=== PATIENT | female | born 1955 | race Caucasian/White ===

== ENCOUNTER → 2016-09-10 | Outpatient (CLI) | payer BC ==
[2015-12-22 11:00] VITALS: BP 146/72
[~2016-09-10] MED LIST: ATOR20TA58 PO; CIPR500T94 PO; FLUC150T PO; LISI-338 PO; LISI10TA2 PO; MELO15TA23 PO; POTASSIUM CHLO10 MEQ PO; TRAM50TA PO; TRIA1CAP3 PO; TRIA1TAB3 PO; ZOLP10TA4 PO
--- NOTE | 2016-09-10 18:06 | KCIC ---
Bilateral digital screening mammograms: Reason for examination: Routine screening. Comparison is made to previous studies dated 07/12/2015 and 06/14/2014. The skin and nipples show no abnormalities. No abnormal lymph nodes are seen. The breast parenchyma is predominantly fatty. (Breast density: Category A.) There are no dominant masses, suspicious calcifications or architectural distortions. Punctate benign calcifications are again seen. Impression: No evidence of malignancy. Recommend routine screening. BI-RADS Category 2: Benign. "Our facility is accredited by the [employer] Mammography Program." This patient's information has been entered into a reminder system for the patient to be notified with the results of her examination and a target date for the next mammogram. Electronically signed by: Huong Lawson MD (09/10/2016 6:02 PM)
== END | disposition home or self-care (01) ==
LOC: KCIC MAMMO 15:09
PROVIDERS: ATTEND Family Medicine
DX: Z12.31 Encounter for screening mammogram for malignant neoplasm of breast (principal)
CPT/HCPCS: G0202; 77067

== ENCOUNTER → 2017-10-01 | Outpatient (CLI) | payer BC | END | disposition home or self-care (01) | LOC: KCIC MAMMO 10:02 | DX: Z12.31 Encounter for screening mammogram for malignant neoplasm of breast (principal) | CPT/HCPCS: 77067 ==

== ENCOUNTER → 2017-11-14 | Outpatient (CLI) | payer BC ==
[2015-12-22 11:00] VITALS: BP 146/72
[~2017-11-14] MED LIST changes: +LOSA25TA4 PO; +POTA10TA12 PO; -POTASSIUM CHLO10 MEQ PO
--- NOTE | 2017-11-14 14:34 | KCIC ---
EXAM: Abdomen sonogram; pelvic sonogram. HISTORY: Right flank pain. Right upper quadrant pain. TECHNIQUE: Sonographic imaging of the abdomen was performed. Transabdominal and transvaginal sonographic imaging of the pelvis performed. COMPARISON: None. FINDINGS: Pelvis: The uterus measures 8.7 x 5.1 x 5.4 cm. There are multiple uterine fibroids, the largest of which measures 3.9 cm within the anterior uterine fundus. There is a nabothian cyst within the cervix. The right ovary measures 3.4 x 2.9 x 3.8 cm. The left ovary measures 1.8 x 1.7 x 1.3 cm. There is normal blood flow within both ovaries. There is a 3.1 cm right ovarian cyst. There is no pelvic free fluid. The endometrial stripe measures 8.7 mm in thickness. Abdomen: The liver is normal in size. There is a 2.8 cm complex left hepatic cyst. There is hepatic steatosis. The gallbladder is unremarkable. The kidneys are unremarkable. The spleen is normal in size. The pancreas is partially obscured. The aorta is normal in caliber. The inferior vena cava is patent. IMPRESSION: 1. Multiple uterine fibroids, the largest of which measures 3.9 cm. 2. Thickened endometrial stripe for the postmenopausal status of the patient, measuring 8.7 mm. Tissue sampling may be indicated. 3. 3.1 cm right ovarian cyst. This is simple in appearance. 4. Nabothian cyst within the cervix. 5. 2.8 cm complex hepatic cyst with internal septation. 6. Suspected hepatic steatosis. Electronically signed by: Lisa Guzman MD (11/14/2017 2:31 PM) [facility] [place]
== END | disposition home or self-care (01) ==
LOC: KCIC US 07:52
PROVIDERS: ATTEND Nurse Practitioner
DX: D25.9 Leiomyoma of uterus, unspecified (principal); N83.291 Other ovarian cyst, right side; N88.8 Other specified noninflammatory disorders of cervix uteri; K76.89 Other specified diseases of liver; I10 Essential (primary) hypertension; E78.5 Hyperlipidemia, unspecified; E78.00 Pure hypercholesterolemia, unspecified; E87.6 Hypokalemia; Z90.49 Acquired absence of other specified parts of digestive tract; Z90.89 Acquired absence of other organs; Z68.28 Body mass index [BMI] 28.0-28.9, adult; Z82.49 Family history of ischemic heart disease and other diseases of the circulatory system; Z80.1 Family history of malignant neoplasm of trachea, bronchus and lung; Z83.3 Family history of diabetes mellitus
CPT/HCPCS: 76700; 76830; 76856

== ENCOUNTER 2017-11-15 06:19 | Inpatient (IN) | payer BC ==
[~2017-11-15] VITALS: Ht 162.6 cm; Wt 81.0 kg
[~2017-11-15 06:19] MED LIST changes: -LOSA25TA4 PO
[2017-11-15 06:28] VITALS: BP 167/82
[2017-11-15] MEDS ORDERED: ZOLP10TA4 PO (06:53)
--- NOTE | 2017-11-15 08:52 | RAD ---
EXAM: Chest, single view. HISTORY: Chest pain. COMPARISON: None. FINDINGS: A frontal view of the chest is obtained. There is no infiltrate, pleural effusion or pneumothorax. The heart is normal in size. There is a cardiac loop recorder overlying the mediastinum. IMPRESSION: No acute pulmonary finding. Electronically signed by: Lisa Guzman MD (11/15/2017 8:49 AM) [facility]
[2017-11-15 09:12] LABS: BASO % 1 % (0-3); EOS # 0.1 x10^3/uL (0.0-0.7); EOS % 1 % (0-3); HEMATOCRIT 39.7 % (36.0-47.0); HEMOGLOBIN 13.6 g/dL (12.0-15.5); LYMPH % 35 % (24-48); MEAN CORPUSCULAR HEMOGLOBIN 31 pg (25-35); MEAN CORPUSCULAR HGB CONC 34 g/dL (31-37); MEAN CORPUSCULAR VOLUME 91 fL (79-100); MONO # 0.7 x10^3/uL (0.0-1.1); MONO % 11 % (0-9); NEUT % 52 % (31-73); PLATELET COUNT 190 x10^3/uL (140-400); RED BLOOD COUNT 4.34 x10^6/uL (3.50-5.40); RED CELL DISTRIBUTION WIDTH 13.1 % (11.5-14.5); WHITE BLOOD COUNT 5.8 x10^3/uL (4.0-11.0)
[2017-11-15 09:32] LABS: CALCIUM 9.5 mg/dL (8.5-10.1); CREATININE 0.8 mg/dL (0.6-1.0); DIRECT BILIRUBIN 0.2 mg/dL (0.0-0.2); GFR 72.7; POTASSIUM 3.4 mmol/L (3.5-5.1); TOTAL BILIRUBIN 0.6 mg/dL (0.2-1.0); TOTAL PROTEIN 7.1 g/dL (6.4-8.2)
[2017-11-15 09:33] LABS: CHOLESTEROL/HDL RATIO 2.4
[2017-11-15 09:39] LABS: CREATINE KINASE 69 U/L (26-192)
[2017-11-15 11:00] VITALS: BP 152/78
[2017-11-15] MEDS ORDERED: LOSA25TA4 PO (11:20)
--- NOTE | 2017-11-15 11:21 | PDOC2 ---
CARDIOLOGY CONSULT NOTE CHEIF COMPLAINT: Nausea, feeling tired HPI: 62 y.o woman well known to our office has had some fatigue throughout the summer. She is still able to walk 3-5 miles without stopping most days of the weak but feels like she has been overall fatigued. Denies any chest pain, syncope, orthopnea or PND. No LE edema. +nausea last night, didn't feel well so went to urgent care and then transferred to [place]. Today feels better. overnight, no events on tele. Her monitor was reviewed and revealed multiple bridget alerts. PMHX: HTN Bradycardia/SSS SOCHX: No alcohol, tob or illicits. FAMHX: NC CURRENT MEDS: Unknown, she recently stopped lisinopril. ALLERGIES: Allergies Coded Allergies Type Severity Reaction Last Updated Verified No Known Drug Allergies 07/16/15 No ROS: Negative for 01/04 systems reviewed unless otherwise noted above in HPI. PHYSICAL EXAM: Vital Signs: Vital Signs Date Time Temp Pulse Resp B/P (MAP) Pulse Ox O2 Delivery O2 Flow Rate FiO2 11/15/17 06:28 97.6 59 16 167/82 (110) 98 Room Air 97.6 Physical Exam: GEN.: No apparent distress. Alert and oriented. HEENT: Head is normocephalic, atraumatic NECK: Supple. LUNGS: Clear to auscultation. HEART: RRR, S1, S2 present. Peripheral pulses intact ABDOMEN: Soft, nontender. Positive bowel sounds. EXTREMITIES: Without any cyanosis. NEUROLOGIC: Normal speech, normal tone PSYCHIATRIC: Normal affect, normal mood. SKIN: No ulcerations DIAGNOSTIC TESTING: EKG unremarkable Tele Sinus bradycardia Lab Labs reviewed. Trop negative. ASSESSMENT: 1. SSS with fatigue - would benefit from pacer. 2. HTN PLAN: 1. Would benefit from pacer. Discussed r/b/a and she wishes to proceed. She really wants to go home to her family and given that she has no active chest pain, HR is stable without syncope, this can be done on an outpt basis. 2. Will set up for outpt echo and pacer. Thanks. Ok to DC home today on losartan if she has no issues after ambulating. I told her to refrain from driving, caring for children by herself and to have someone with her until her pacer is placed. She understands the precautions. MARIBETH SARMIENTO MD Nov 15, 2017 11:21
--- NOTE | 2017-11-15 11:23 | RAD ---
EXAM: Carotid Doppler sonogram. HISTORY: Syncope. TECHNIQUE: Higuera scale and color Doppler sonographic evaluation of the neck with spectral waveform analysis was performed and static images are submitted for review. FINDINGS: There is mild atherosclerotic plaque throughout the common carotid arteries and carotid bulbs. The peak systolic velocity within the right common carotid artery is 65 cm/sec. The peak systolic velocity within the right internal carotid artery is 96 cm/sec and the end diastolic velocity within the right internal carotid artery is 37 cm/sec. The right ICA/CCA ratio is 1.5. The peak systolic velocity within the left common carotid artery is 77 cm/sec. The peak systolic velocity within the left internal carotid artery is 108 cm/sec and the end diastolic velocity within the left internal carotid artery is 36 cm/sec. The left ICA/CCA ratio is 1.5. There is normal antegrade flow within both vertebral arteries. IMPRESSION: No Doppler evidence of hemodynamically significant stenosis within the carotid or vertebral arteries. PQRS Compliance Statement - Stenosis calculations for CT, MR and conventional angiography are based upon measurement of the distal ICA diameter in accordance with the NASCET methodology. Stenosis calculations for carotid ultrasound studies are derived from validated velocity criteria which are known to correlate with the NASCET methodology. Electronically signed by: Lisa Guzman MD (11/15/2017 11:20 AM) [facility]
[2017-11-15] MEDS ORDERED: POTASSIUM CHLORIDE 20 MEQ TABLET.ER. PO ONE (12:15)
--- NOTE | 2017-11-15 12:27 | EKG ---
[facility] [address] [place] [address] Test Date: 2017-11-15 Test Time: 12:20:42 Pat Name: MARSHA HERRON Department: Room: 256 1 Gender: F Web Manager: : 1955 Requested By: CARRIE COLUNGA Order Number: [id number] Reading MD: John Pugh MD Measurements Intervals [place] Rate: 59 P: 38 NV: 132 QRS: -19 QRSD: 94 T: 84 QT: 482 QTc: 482 Interpretive Statements SINUS RHYTHM LEFTWARD AXIS PROLONGED QT ABNORMAL ECG Electronically Signed On 11-18-2017 9:10:29 CDT by John Pugh MD
[2017-11-15] MEDS ORDERED: ACETAMINOPHEN 325 MG TABLET. PO PRN ×2 (13:30)
--- NOTE | 2017-11-15 13:48 | PDOC1 ---
History and Physical Date of Admission Date of Admission 11/15/17 Identification/Chief Complaint Chief Complaint fatigue, chest pain Source Source: Patient History of Present Illness History of Present Illness 62yo F, was sent from [facility] for chest pain. pt has non typical multiple complains. She said she started to cough a few weeks ago, received abx 2 rounds for bronchitis and cough is much better, but since then, she felt "sulaiman", fatigue. yesterday she felt some substernal chest uncomfortable, no sob, no N/V She has a loop recorder for 2 years since syncope 2015, said no syncope or card problem since then. Past Medical History Cardiovascular: HTN, Hyperlipidemia Pulmonary: No pertinent hx CENTRAL NERVOUS SYSTEM: Other GI: No pertinent hx Heme/Onc: No pertinent hx Hepatobiliary: No pertinent hx Psych: No pertinent hx Rheumatologic: No pertinent hx Infectious disease: No pertinent hx Renal/: No pertinent hx Endocrine: No pertinent hx Past Surgical History Past Surgical History: Tubal Ligation, Tonsillectomy Family History Family History: Cancer, Coronary Artery Disease, Diabetes Social History Smoke: No ALCOHOL: none Drugs: None Current Medications Current Medications Current Medications Medications (Trade) Dose Ordered Sig/Angie Start Time Stop Time Status Last Admin Dose Admin Acetaminophen (Tylenol) 650 mg PRN Q6HRS PRN 11/15/17 13:30 Potassium Chloride (Klor-Con) 40 meq 1X ONCE 11/15/17 12:15 11/15/17 12:16 DC 11/15/17 13:27 40 MEQ Allergies Allergies Allergies Coded Allergies Type Severity Reaction Last Updated Verified No Known Drug Allergies 07/16/15 No ROS Review of System CONSTITUTIONAL: No fever or chills EYES: No recent changes SKIN: No rash or itching CARDIOVASCULAR: No chest pain, syncope, palpitations, or edema RESPIRATORY: No SOB or cough GASTROINTESTINAL: No nausea, vomiting or abdominal pain NEUROLOGICAL: No headaches or weakness ENDOCRINE: No cold or heat intolerance GENITOURINARY: No urgency or frequency of urination MUSCULOSKELETAL: No back pain or joint pain LYMPHATICS: No enlarged lymph nodes PSYCHIATRIC: No anxiety or depression Physical Exam Physical Exam GEN.: No apparent distress. Alert and oriented. HEENT: Head is normocephalic, atraumatic NECK: Supple. LUNGS: Clear to auscultation. HEART: RRR, S1, S2 present. Peripheral pulses intact ABDOMEN: Soft, nontender. Positive bowel sounds. EXTREMITIES: Without any cyanosis. NEUROLOGIC: Normal speech, normal tone PSYCHIATRIC: Normal affect, normal mood. SKIN: No ulcerations Vitals Vitals Vital Signs Date Time Temp Pulse Resp B/P (MAP) Pulse Ox O2 Delivery O2 Flow Rate FiO2 11/15/17 11:00 97.9 56 152/78 (102) 97 Room Air 97.9 11/15/17 06:28 16 Labs Labs Laboratory Tests Test 11/15/17 08:50 White Blood Count 5.8 x10^3/uL (4.0-11.0) Red Blood Count 4.34 x10^6/uL (3.50-5.40) Hemoglobin 13.6 g/dL (12.0-15.5) Hematocrit 39.7 % (36.0-47.0) Mean Corpuscular Volume 91 fL (79-100) Mean Corpuscular Hemoglobin 31 pg (25-35) Mean Corpuscular Hemoglobin Concent 34 g/dL (31-37) Red Cell Distribution Width 13.1 % (11.5-14.5) Platelet Count 190 x10^3/uL (140-400) Neutrophils (%) (Auto) 52 % (31-73) Lymphocytes (%) (Auto) 35 % (24-48) Monocytes (%) (Auto) 11 % (0-9) Eosinophils (%) (Auto) 1 % (0-3) Basophils (%) (Auto) 1 % (0-3) Neutrophils # (Auto) 3.0 x10^3uL (1.8-7.7) Lymphocytes # (Auto) 2.0 x10^3/uL (1.0-4.8) Monocytes # (Auto) 0.7 x10^3/uL (0.0-1.1) Eosinophils # (Auto) 0.1 x10^3/uL (0.0-0.7) Basophils # (Auto) 0.0 x10^3/uL (0.0-0.2) Sodium Level 141 mmol/L (136-145) Potassium Level 3.4 mmol/L (3.5-5.1) Chloride Level 105 mmol/L (98-107) Carbon Dioxide Level 29 mmol/L (21-32) Anion Gap 7 (6-14) Blood Urea Nitrogen 10 mg/dL (7-20) Creatinine 0.8 mg/dL (0.6-1.0) Estimated GFR (Cockcroft-Gault) 72.7 Glucose Level 101 mg/dL (70-99) Calcium Level 9.5 mg/dL (8.5-10.1) Total Bilirubin 0.6 mg/dL (0.2-1.0) Direct Bilirubin 0.2 mg/dL (0.0-0.2) Aspartate Amino Transf (AST/SGOT) 16 U/L (15-37) Alanine Aminotransferase (ALT/SGPT) 25 U/L (14-59) Alkaline Phosphatase 55 U/L (46-116) Creatine Kinase 69 U/L (26-192) Creatine Kinase MB (Mass) 0.8 ng/mL (0.0-3.6) Creatine Kinase MB Relative Index % (0-4) Troponin I Quantitative < 0.017 ng/mL (0.000-0.055) Total Protein 7.1 g/dL (6.4-8.2) Albumin 4.0 g/dL (3.4-5.0) Triglycerides Level 57 mg/dL (0-150) Cholesterol Level 154 mg/dL (0-200) LDL Cholesterol, Calculated 78 mg/dL (0-100) VLDL Cholesterol, Calculated 11 mg/dL (0-40) Non-HDL Cholesterol Calculated 89 mg/dL (0-129) HDL Cholesterol 65 mg/dL (40-60) Cholesterol/HDL Ratio 2.4 Thyroid Stimulating Hormone (TSH) 2.542 uIU/mL (0.358-3.74) Laboratory Tests Test 11/15/17 08:50 White Blood Count 5.8 x10^3/uL (4.0-11.0) Red Blood Count 4.34 x10^6/uL (3.50-5.40) Hemoglobin 13.6 g/dL (12.0-15.5) Hematocrit 39.7 % (36.0-47.0) Mean Corpuscular Volume 91 fL (79-100) Mean Corpuscular Hemoglobin 31 pg (25-35) Mean Corpuscular Hemoglobin Concent 34 g/dL (31-37) Red Cell Distribution Width 13.1 % (11.5-14.5) Platelet Count 190 x10^3/uL (140-400) Neutrophils (%) (Auto) 52 % (31-73) Lymphocytes (%) (Auto) 35 % (24-48) Monocytes (%) (Auto) 11 % (0-9) Eosinophils (%) (Auto) 1 % (0-3) Basophils (%) (Auto) 1 % (0-3) Neutrophils # (Auto) 3.0 x10^3uL (1.8-7.7) Lymphocytes # (Auto) 2.0 x10^3/uL (1.0-4.8) Monocytes # (Auto) 0.7 x10^3/uL (0.0-1.1) Eosinophils # (Auto) 0.1 x10^3/uL (0.0-0.7) Basophils # (Auto) 0.0 x10^3/uL (0.0-0.2) Sodium Level 141 mmol/L (136-145) Potassium Level 3.4 mmol/L (3.5-5.1) Chloride Level 105 mmol/L (98-107) Carbon Dioxide Level 29 mmol/L (21-32) Anion Gap 7 (6-14) Blood Urea Nitrogen 10 mg/dL (7-20) Creatinine 0.8 mg/dL (0.6-1.0) Estimated GFR (Cockcroft-Gault) 72.7 Glucose Level 101 mg/dL (70-99) Calcium Level 9.5 mg/dL (8.5-10.1) Total Bilirubin 0.6 mg/dL (0.2-1.0) Direct Bilirubin 0.2 mg/dL (0.0-0.2) Aspartate Amino Transf (AST/SGOT) 16 U/L (15-37) Alanine Aminotransferase (ALT/SGPT) 25 U/L (14-59) Alkaline Phosphatase 55 U/L (46-116) Creatine Kinase 69 U/L (26-192) Creatine Kinase MB (Mass) 0.8 ng/mL (0.0-3.6) Creatine Kinase MB Relative Index % (0-4) Troponin I Quantitative < 0.017 ng/mL (0.000-0.055) Total Protein 7.1 g/dL (6.4-8.2) Albumin 4.0 g/dL (3.4-5.0) Triglycerides Level 57 mg/dL (0-150) Cholesterol Level 154 mg/dL (0-200) LDL Cholesterol, Calculated 78 mg/dL (0-100) VLDL Cholesterol, Calculated 11 mg/dL (0-40) Non-HDL Cholesterol Calculated 89 mg/dL (0-129) HDL Cholesterol 65 mg/dL (40-60) Cholesterol/HDL Ratio 2.4 Thyroid Stimulating Hormone (TSH) 2.542 uIU/mL (0.358-3.74) VTE Prophylaxis Ordered VTE Prophylaxis Devices: Yes VTE Pharmacological Prophylaxi: Yes Assessment/Plan Assessment/Plan Fatigue chest pain, atypical HTN hypokalemia has loop recorder. plan: as per card, pt's loop recorder was found to have bridget cardia recently, which is likely the reason for fatigue, pt need PPM but wants to go home card ok to dc home today and fu with card as outpt next week. CARRIE COLUNGA MD Nov 15, 2017 13:48
--- NOTE | 2017-11-15 13:49 | PDOC3 ---
Discharge Summary [facility] Date of Admission: Nov 15, 2017 Discharge Date: Nov 15, 2017 Admitting Diagnosis Fatigue chest pain, atypical 2/2 arrythmia bradycardia HTN hypokalemia has loop recorder, has bradycardia CONSULTS card Brief Hospital Course 62yo F, was sent from [facility] ER for chest pain. pt has non typical multiple complains. She said she started to cough a few weeks ago, received abx 2 rounds for bronchitis and cough is much better, but since then, she felt "sulaiman", fatigue. yesterday she felt some substernal chest uncomfortable, no sob, no N/V She has a loop recorder for 2 years since syncope 2016, said no syncope or card problem since then. as per card, pt's loop recorder was found to have bridget cardia recently, which is likely the reason for fatigue, pt need PPM but wants to go home. Carotid US neg. card ok to dc home today and fu with card as outpt next week. dc time 35min. Patient History: FHx: cancer 33 FATHER (LUNG CANCER AT AGE 54) Family history: Cardiovascular disease (situation) 32 MOTHER (CHF) Family history: Hypertension (situation) 32 MOTHER (HTN , CHF, CHRONIC ANEMIA) Disposition home CONDITION AT DISCHARGE: Improved Scheduled Atorvastatin Calcium (Atorvastatin Calcium), 20 MG PO DAILY, (Reported) Losartan Potassium (Losartan Potassium), 25 MG PO DAILY, (Reported) Meloxicam (Meloxicam), 15 MG PO DAILY, (Reported) Discontinued Medications Lisinopril (Lisinopril), 10 MG PO DAILY Zolpidem Tartrate (Zolpidem Tartrate), 1 TAB PO QHS, (Reported) CARRIE COLUNGA MD Nov 15, 2017 13:49
[2017-11-15 15:42] VITALS: BP 128/82
== END 2017-11-15 18:40 | disposition home or self-care (01) | DRG 310 ==
LOC: 2 SOUTH 06:19
PROVIDERS: ADMIT Internal Medicine; ATTEND Internal Medicine
DX: I49.9 Cardiac arrhythmia, unspecified (principal); I49.5 Sick sinus syndrome; I10 Essential (primary) hypertension; E78.5 Hyperlipidemia, unspecified; E87.6 Hypokalemia; Z83.3 Family history of diabetes mellitus; Z98.51 Tubal ligation status; Z82.49 Family history of ischemic heart disease and other diseases of the circulatory system; Z80.9 Family history of malignant neoplasm, unspecified; Z80.1 Family history of malignant neoplasm of trachea, bronchus and lung
CPT/HCPCS: 36415; 71045; 76700; 76830; 76856; 80048; 80061; 80076; 82553; 84443; 84484; 85025; 93005; 93880

== ENCOUNTER → 2017-11-19 | Outpatient (CLI) | payer BC ==
[2017-11-15 15:42] VITALS: BP 128/82
[~2017-11-19] MED LIST changes: +LOSA25TA5 PO
--- NOTE | 2017-11-19 12:36 | CARD ---
MR#: [id number] Date of Study: 11/19/2017 Ordering Physician: MARIBETH SARMIENTO, Referring Physician: MARIBETH SARMIENTO, Tech: ARLENE Faulkner APPROVED REPORT INDICATION Chest Pain Reason : Patient complained of pain PROCEDURE The patient underwent an Exercise Stress Test using the Alli Protocol. Blood pressure, heart rate, a nd EKG were monitored. An Echocardiogram was performed by sleep lab technician in four stages in quad fashion. At peak stress four se lected images were obtained and placed side by side with resting images for comparison. STRESS ECHO FINDINGS The resting Echocardiogram showed normal left ventricular systolic contractility with an estimated Ej ection Fraction of about 55 %. The Resting Echocardiogram showed normal augmentation of myocardial wall segments using a 16 segment model. The Stress Echocardiogram showed normal augmentation of myocardial wall segments using a 16 segment m kena. The Stress Echocardiogram left ventricular systolic contractility has an estimated Ejection Fraction of about 80%. Test Type: Exercise Stress Nurse/Tech: Alexandra Mendoza R.N. Test Indications: SSS Cardiac History and Allergies: see ehr Medications: see ehr Medical History: see ehr Resting ECG: SB Resting Heart Rate: 51 bpm Resting Blood Pressure: 161/71mmHg Pretest Chest Pain: None Nurse/Tech Notes lungs CTA, S1S2 Stress Symptoms fatigue, SOB, lightheaded. during the very last minute of recovery period many T waves became inverte d, and the T waves in leads AVR and V1 became upright POST EXERCISE Reason for Termination: Reached target heart rate Target HR: Yes Max HR: 143 bpm 91% of Maximum Predicted HR: 158 bpm Exercise duration: 9 min:sec, 3 Stage Exercise capacity: 10.1METs Max Blood Pressure: 206/72mmHg Blood Pressure response to exercise: Normal blood pressure response during stress. Heart Rate response to exercise: wnl Chest Pain: No. Arrhythmia: Yes. started having frequent pac's ST Change: Yes. slight ST depression in lead II, slight ST elevation in lead AVR and V1 STRESS ECG Stress EKG shows no significant changes. Preliminary Notification Critical Value: No <Conclusion> The left ventricle is normal in size and wall thickness in both the rest and stress images.ef > 60% No stress induced ischemic changes on EKG or echo. Low risk study Signed by : Maribeth Sarmiento, Electronically Approved : 11/19/2017 12:35:31
== END | disposition home or self-care (01) ==
LOC: ECHO 10:38
PROVIDERS: ATTEND Internal Medicine Cardiovascular Disease
DX: R07.9 Chest pain, unspecified (principal); I10 Essential (primary) hypertension; E78.5 Hyperlipidemia, unspecified; E78.00 Pure hypercholesterolemia, unspecified; D25.9 Leiomyoma of uterus, unspecified; E87.6 Hypokalemia; Z90.49 Acquired absence of other specified parts of digestive tract; Z82.49 Family history of ischemic heart disease and other diseases of the circulatory system; Z80.1 Family history of malignant neoplasm of trachea, bronchus and lung; Z83.3 Family history of diabetes mellitus
CPT/HCPCS: 93017; 93350

== ENCOUNTER 2017-11-20 11:20 | Observation (INO) | payer BC ==
[~2017-11-20] VITALS: Ht 162.6 cm; Wt 80.5 kg
[2017-11-20] MEDS ORDERED: ZOLP10TA4 PO (11:45)
[2017-11-20 12:00] VITALS: BP 175/80
[2017-11-20 12:05] LABS: HEMATOCRIT 37.9 % (36.0-47.0); RED BLOOD COUNT 4.13 x10^6/uL (3.50-5.40); RED CELL DISTRIBUTION WIDTH 13.3 % (11.5-14.5)
[2017-11-20 12:17] LABS: CALCIUM 8.7 mg/dL (8.5-10.1); CREATININE 0.7 mg/dL (0.6-1.0); GFR 84.8; POTASSIUM 3.7 mmol/L (3.5-5.1)
[2017-11-20 12:18] LABS: PROTHROMBIN TIME PATIENT 12.3 SEC (11.7-14.0)
[2017-11-20] MEDS ORDERED: LIDOCAINE 2%/EPI 1:100,000 20 ML VIAL. ONE (14:39)
[2017-11-20] MEDS ORDERED: fentaNYL PF VIAL 100 MCG/2 ML VIAL ONE (14:45)
[2017-11-20] MEDS ORDERED: MIDAZOLAM HCL/PF 2 MG/2 ML VIAL. ONE ×2 (14:45→15:14)
[2017-11-20] MEDS ORDERED: BACITRACIN 50,000 UNIT in IV NORMAL SALINE 250ML 250 ML IRR ONE (15:00)
[2017-11-20] MEDS ORDERED: MIDAZOLAM HCL/PF 2 MG/2 ML VIAL. IV ONE (15:00)
[2017-11-20] MEDS ORDERED: fentaNYL PF VIAL 100 MCG/2 ML VIAL IV ONE (15:00)
[2017-11-20] MEDS ORDERED: LIDOCAINE 2%/EPI 1:100,000 20 ML VIAL. IJ ONE (15:00)
[2017-11-20 16:27] VITALS: BP 142/61
[2017-11-20] MEDS ORDERED: NO ANTICOAGULANT THERAPY. MC PRN (17:15)
--- NOTE | 2017-11-20 17:31 | CARD ---
MR#: [id number] Date of Study: 11/20/2017 Ordering Physician: MARIBETH SARMIENTO, Referring Physician: MARIBETH SARMIENTO, Tech: APPROVED REPORT HISTORY Moderate sedation: 90 minutes PROCEDURES Insertion Dual Chamber Pacemaker INDICATIONS SSS IMPLANTED DEVICES 30 mL of 2% lidocaine was infiltrated into the skin and subcutaneous tissues for local anesthesia. A n incision was made over the left infraclavicular fossa and using blunt dissection and cautery a pock et was created. Venous access was obtained in the left subclavian vein and 6 Armenian sheaths were ins erted. Subsequently, a Biotronik bipolar active fixation right ventricular lead modelSolia S 53, SN [id number] was advanced under fluoroscopic guidance and the tip was positioned in the right ventricular apex. Following this, a Biotronik bipolar active fixation right atrial lead model Solia S 45, SN [id number] w as placed in the right atrial appendage under fluoroscopy guidance. The leads were secured into plac e and were attached to a Biotronik dual-chamber permanent pacemaker generator model Eluna 8DR-T, SN [id number]. This was placed in the pocket that was subsequently closed in 3 layers. Hemostasis was sec ured. At the end of procedure, the right ventricular lead showed sensing amplitude of 10.1 mV, impedance of 600 ohms and a threshold of 0.8volts. The right atrial lead showed a sensing amplitude of 2.1 dante volts, impedance of 500 ohms and a threshold of 0.8 volts. Patient tolerated the procedure well. The re were no immediate complications. FINAL SETTINGS: DDD/CLS 60-130 COMPLICATIONS The patient tolerated the procedure well and there were no complications associated with the procedur e. CONCLUSION 1. Successful Biotronik dual chamber pacemaker implantation for SSS. Signed by : Maribeth Sarmiento, Electronically Approved : 11/20/2017 17:30:53
--- NOTE | 2017-11-20 17:34 | CARD ---
MR#: [id number] Date of Study: 11/20/2017 Ordering Physician: MARIBETH SARMIENTO, Referring Physician: MARIBETH SARMIENTO, Tech: APPROVED REPORT EXAM Loop Recorder After appropriate informed consent, the previously placed Biotronik loop recorder site was prepped an d draped in usual sterile fashion. Due to findings of SSS with fatigue, the patient was planned for a pacemaker after loop explantation. 10 ml of lidocaine was used for anesthesia. Using a 15 blade scal pel, a 0.5 inch incision was made over the loop recorder and it was easily identified and removed fro m the pocket. One suture was placed and the incision was closed with steri strips. CONCLUSION Successful Biotronik loop recorder explantation. Signed by : Maribeth Sarmiento, Electronically Approved : 11/20/2017 17:33:20
--- NOTE | 2017-11-20 17:58 | RAD ---
Indication:post pacemaker TECHNIQUE:Portable AP chest X-ray COMPARISON:11/15/2017 FINDINGS: Interval placement of dual-lead cardiac pacer with disease projecting over the heart. Heart is normal in size. Lungs are clear. No pneumothorax or pleural effusion. Visualized bony thorax is within normal limits. IMPRESSION: No acute pulmonary process. Electronically signed by: Eduardo Marley DO (11/20/2017 5:55 PM) [facility]
[2017-11-20 18:16] VITALS: BP 148/65
[2017-11-20 18:46] VITALS: BP 120/61
[2017-11-20] MEDS ORDERED: oxyCODONE/APAP 5/325 1 TAB TABLET PO PRN (19:00)
[2017-11-20] MEDS: ACETAMINOPHEN 325 MG TABLET. PO PRN (19:05)
[2017-11-20 19:53] VITALS: BP 158/64
[2017-11-20 22:44] VITALS: BP 138/99
[2017-11-21 03:35] VITALS: BP 131/60
[2017-11-21] MEDS: ACETAMINOPHEN 325 MG TABLET. PO PRN (06:26)
[2017-11-21 07:00] VITALS: BP 133/65
--- NOTE | 2017-11-21 09:09 | RAD ---
CHEST PA LATERAL History: DAY 1 POST PACEMAKER Comparison: November 20, 2017 Findings: 2 views of the chest are submitted. There is again dual lead left electronic cardiac device, distal lead closer to the ventricular apex and proximal lead in the region of the atrial appendage. Pericardial cardiac silhouette is stable, within normal limits. No pneumothorax is identified. There is no pleural fluid or lobar infiltrate. Impression: 1. No acute radiographic abnormality is identified. Electronically signed by: Andrae Sarabia MD (11/21/2017 9:06 AM) [id number]
--- NOTE | 2017-11-21 10:07 | PDOC3 ---
*Discharge Summary* Date of Admission: Nov 20, 2017 Date of Discharge: Nov 21, 2017 Admitting Diagnosis 1/symptomatic SSS 2/hypertension 3/hyperlipidemia Final Diagnosis 1/symptomatic SSS; S/P dual chamber Biotronik pacemaker 2/hypertension 3/hyperlipidemia Procedures 11/20/2017: 1. Biotronik dual chamber pacemaker implantation for SSS. 2. Biotronik loop recorder explantation Brief Hospital Course Ms. Daniels is a 62 old with symptomatic fatigue. IPL demonstrated multiple bradycardia alerts. Stress echo on 11/19/2017 without significant findings. Pacemaker advised. Underwent pacemaker implant yesterday with explant of IPL. Monitored overnight with appropriate sensing and pacing. Interrogation without significant findings today. CXR with no ptx and leads in stable position. Discharge instructions provided. Wound C/D/I without erythema, edema or ecchymosis. Disposition/Orders: D/C to Home CONDITION AT DISCHARGE: Stable Diet: Cardiac Home Meds Reported Medications Zolpidem Tartrate (ZOLPIDEM TARTRATE) 10 Mg Tablet, 1 TAB PO QHS, #30 TAB 2 Refills 11/20/17 Losartan Potassium (LOSARTAN POTASSIUM) 25 Mg Tablet, 25 MG PO DAILY, TAB 11/15/17 Atorvastatin Calcium (ATORVASTATIN CALCIUM) 20 Mg Tablet, 20 MG PO DAILY for FOR CHOLESTEROL, #30 TAB 0 Refills 07/21/15 Meloxicam (MELOXICAM) 15 Mg Tablet, 15 MG PO DAILY, TAB 07/21/15 Discontinued Reported Medications Zolpidem Tartrate (ZOLPIDEM TARTRATE) 10 Mg Tablet, 1 TAB PO QHS, #30 TAB 2 Refills 11/15/17 Discontinued Scripts Lisinopril (LISINOPRIL) 5 Mg Tablet, 10 MG PO DAILY for 30 Days Prov:CARRIE COLUNGA MD 12/22/15 Scheduled Atorvastatin Calcium (Atorvastatin Calcium), 20 MG PO DAILY, (Reported) Losartan Potassium (Losartan Potassium), 25 MG PO DAILY, (Reported) Meloxicam (Meloxicam), 15 MG PO DAILY, (Reported) Zolpidem Tartrate (Zolpidem Tartrate), 1 TAB PO QHS, (Reported) Discontinued Medications Lisinopril (Lisinopril), 10 MG PO DAILY Zolpidem Tartrate (Zolpidem Tartrate), 1 TAB PO QHS, (Reported) FOLLOW UP APPOINTMENT: wound check on 12/05/2017 PCP 7-10 days Time Spent Total time spent with patient [] minutes for coordination of care, counseling, and education. CARLITA WRIGHT HYBRID TECHNOLOGIST Nov 21, 2017 10:07
== END 2017-11-21 10:30 | disposition home or self-care (01) ==
LOC: CCL 11:20 → 2 NORTH 11:56
PROVIDERS: ADMIT Internal Medicine Cardiovascular Disease; ATTEND Internal Medicine Cardiovascular Disease
DX: I49.5 Sick sinus syndrome (principal); I10 Essential (primary) hypertension; E78.5 Hyperlipidemia, unspecified; R53.83 Other fatigue
CPT/HCPCS: 33208; 33284; 36415; 71045; 71046; 80048; 85027; 85610; 85730; 96365; 96366; 96375; C1785; C1898; G0378; G0379; J0690; J2250; J3010; J3490; J7050; 99152; 99153; J7030

== ENCOUNTER → 2018-01-28 | Outpatient (CLI) | payer BC ==
[~2018-01-28] MED LIST changes: +GLUC1TAB45 PO; +OMEG1CAP27 PO
[2018-01-28 15:55] LABS: BASO % 1 % (0-3); EOS # 0.1 x10^3/uL (0.0-0.7); EOS % 2 % (0-3); HEMATOCRIT 41.4 % (36.0-47.0); HEMOGLOBIN 14.1 g/dL (12.0-15.5); LYMPH # 1.8 x10^3/uL (1.0-4.8); LYMPH % 33 % (24-48); MEAN CORPUSCULAR HEMOGLOBIN 31 pg (25-35); MEAN CORPUSCULAR HGB CONC 34 g/dL (31-37); MEAN CORPUSCULAR VOLUME 90 fL (79-100); MONO # 0.5 x10^3/uL (0.0-1.1); MONO % 9 % (0-9); NEUT % 55 % (31-73); PLATELET COUNT 207 x10^3/uL (140-400); RED BLOOD COUNT 4.59 x10^6/uL (3.50-5.40); RED CELL DISTRIBUTION WIDTH 12.3 % (11.5-14.5); WHITE BLOOD COUNT 5.5 x10^3/uL (4.0-11.0)
--- NOTE | 2018-01-28 16:18 | EKG ---
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
[2018-01-28 16:31] LABS: ALBUMIN 4.1 g/dL (3.4-5.0); ALBUMIN/GLOBULIN RATIO 1.1 (1.0-1.7); CALCIUM 9.5 mg/dL (8.5-10.1); CREATININE 0.8 mg/dL (0.6-1.0); GFR 72.7; POTASSIUM 3.3 mmol/L (3.5-5.1); TOTAL BILIRUBIN 0.6 mg/dL (0.2-1.0); TOTAL PROTEIN 7.8 g/dL (6.4-8.2)
--- NOTE | 2018-01-28 16:35 | RAD ---
CHEST PA LATERAL dated 01/28/2018 3:26 PM. Comparison: 11/21/2017 Clinical Indication: PRE OP, PT TO HAVE HYSTERECTOMY NEXT WEEK. . Findings: PA and lateral views obtained. Heart and mediastinal contours are stable. Dual lead left subclavian pacer in place, unchanged. Lungs are clear without focal consolidation. Vascular interstitium within normal limits. No pleural effusion or pneumothorax. Impression: No acute radiographic abnormality. Stable findings compared 11/21/2017. Electronically signed by: Jayme Garcia MD (01/28/2018 4:32 PM) [id number]
== END | disposition home or self-care (01) ==
LOC: SURGPAT 15:14
PROVIDERS: ATTEND Obstetrics & Gynecology
DX: Z01.818 Encounter for other preprocedural examination (principal); I10 Essential (primary) hypertension; E78.5 Hyperlipidemia, unspecified
CPT/HCPCS: 36415; 71046; 80053; 85025; 93005

== ENCOUNTER 2018-02-04 05:46 | Observation (INO) | payer BC ==
[2018-02-04] VITALS (10 sets, daily range): BP systolic 124–156; BP diastolic 46–79
[~2018-02-04] VITALS: Ht 162.6 cm; Wt 81.6 kg
[2018-02-04] MEDS ORDERED: fentaNYL PF VIAL 100 MCG/2 ML VIAL IV PRN (07:00)
[2018-02-04] MEDS ORDERED: HYDROmorphone 2 MG/ML VIAL IV PRN (07:00)
[2018-02-04] MEDS ORDERED: LIDOCAINE 1% PF 2 ML VIAL. ID PRN (07:00)
[2018-02-04] MEDS ORDERED: IV RINGERS,LACTATED 1000ML 1,000 ML IV SCH (07:00)
[2018-02-04] MEDS ORDERED: ONDANSETRON PF 4 MG/2 ML VIAL. IV PRN ×2 (07:00→09:30)
[2018-02-04] MEDS ORDERED: MORPHINE SULFATE 2 MG/ML VIAL. IV PRN ×2 (07:00→09:30)
[2018-02-04] MEDS ORDERED: PROCHLORPERAZINE 10 MG/2 ML VIAL. IV PRN (07:00)
[2018-02-04] MEDS ORDERED: SEVOFLURANE > 120 MINUTES. IH ONE (07:11)
[2018-02-04] MEDS ORDERED: MIDAZOLAM HCL/PF 2 MG/2 ML VIAL. ONE (07:11)
[2018-02-04] MEDS ORDERED: ONDANSETRON PF 4 MG/2 ML VIAL. ONE (07:12)
[2018-02-04] MEDS ORDERED: ROCURONIUM 50 MG/5 ML VIAL. ONE (07:12)
[2018-02-04] MEDS ORDERED: KETOROLAC 30 MG/ML INJ FOR OR. INJ ONE (07:12)
[2018-02-04] MEDS ORDERED: NEOSTIGMINE METHYLSULFATE 5 MG/5 ML SYRINGE. ONE (07:12)
[2018-02-04] MEDS ORDERED: DEXAMETHASONE SOD PHOS 20 MG/5 ML VIAL. ONE (07:12)
[2018-02-04] MEDS ORDERED: fentaNYL PF VIAL 100 MCG/2 ML VIAL ONE (07:12)
[2018-02-04] MEDS ORDERED: PROPOFOL 20 ML IV ONE (07:12)
[2018-02-04] MEDS ORDERED: GLYCOPYRROLATE 1 MG/5 ML VIAL. ONE (07:12)
[2018-02-04] MEDS ORDERED: ZOLPIDEM 5 MG TABLET. PO PRN ×2 (07:30→09:30)
[2018-02-04] MEDS ORDERED: ePHEDrine PF IN SALINE 50 MG/5 ML DISP.SYRIN IV ONE (07:52)
[2018-02-04] MEDS ORDERED: BUPIVAC MPF-EPI 0.5%-1:200000 30 ML VIAL. ONE (08:45)
[2018-02-04] MEDS: ATORVASTATIN CALCIUM 20 MG TABLET PO SCH ×2 (09:00→20:29)
[2018-02-04] MEDS: LOSARTAN POTASSIUM 25 MG TABLET. PO SCH (09:00)
--- NOTE | 2018-02-04 09:28 | PDOC ---
BRIEF OPERATIVE NOTE Date: Feb 04, 2018 Pre-Op Diagnosis enlarged fibroid uterus, endometrial thickening, right ovarian cyst Post-Op Diagnosis same plus bowel adhesions seen incidentially Procedure Performed LAVH/BSO Surgeon Dr. Eufemia Ramachandran Tractor Distributor Keiry technical services assistant Anesthesiologist Dr. Beto Narvaez Anesthesia Type: General Blood Loss 25cc IV Fluid 1L Urine Output 500cc clear via galicia Specimens Obtained cervix, uterus, bilateral tubes and ovaries Findings bowel adhesions on both sides of sidewalls, enlarged fibroid uterus, normal left tube/ovary, enlarged cystic right ovary Complications none Operative Note [id number] EUFEMIA RAMACHANDRAN MD Feb 04, 2018 09:28
[2018-02-04] MEDS ORDERED: NALOXONE 0.4 MG/ML VIAL. IV PRN (09:30)
[2018-02-04] MEDS ORDERED: MAGNESIUM HYDROXIDE 2,400 MG/30 ML ORAL.SUSP. PO PRN (09:30)
[2018-02-04] MEDS ORDERED: LACTULOSE 20 GM/30 ML SOLUTION. PO PRN (09:30)
[2018-02-04] MEDS ORDERED: 0.9 % SODIUM CHLORIDE 10 ML DISP.SYRIN. IV PRN (09:30)
[2018-02-04] MEDS ORDERED: diphenhydrAMINE 50 MG/ML VIAL IV PRN (09:30)
[2018-02-04] MEDS ORDERED: SIMETHICONE 80 MG TAB.CHEW PO PRN (09:30)
[2018-02-04] MEDS ORDERED: CALCIUM CARBONATE 500 MG TAB.CHEW PO PRN (09:30)
[2018-02-04] MEDS ORDERED: diphenhydrAMINE HCL 25 MG CAPSULE PO PRN (09:30)
[2018-02-04] MEDS ORDERED: KETOROLAC 30 MG/ML VIAL. IV PRN (09:30)
[2018-02-04] MEDS ORDERED: HYDROcodone/APAP 5/325MG 1 TAB TABLET PO PRN (09:30)
[2018-02-04] MEDS ORDERED: MAG HYDROX/ALUMINUM HYD/SIMETH 30 ML ORAL.SUSP PO PRN (09:30)
[2018-02-04] MEDS: fentaNYL PF VIAL 100 MCG/2 ML VIAL IV PRN ×2 (09:59→10:07)
--- NOTE | 2018-02-04 10:42 | OP ---
DATE OF SURGERY: 02/04/2018 PREOPERATIVE DIAGNOSES: Enlarged fibroid uterus, endometrial thickening seen on sonogram and a complex right ovarian cyst. POSTOPERATIVE DIAGNOSES: Enlarged fibroid uterus, endometrial thickening seen on sonogram and a complex right ovarian cyst plus bowel adhesions found incidentally on both sides of the sidewall lower pelvic area. SURGEON: Eufemia Gadnhi M.D. CRANE ASSEMBLER: first usman Olea. ANESTHESIOLOGIST: Beto Arnold M.D. ANESTHESIA: General endotracheal. SURGERY PERFORMED: Laparoscopic-assisted vaginal hysterectomy and bilateral salpingo-oophorectomy. ESTIMATED BLOOD LOSS: 25 mL. URINE OUTPUT: 500 mL clear via Sepulveda catheter. FLUIDS: 1 liter of crystalloid. FINDINGS: Enlarged fibroid uterus, normal left tube and ovary, normal right tube, enlarged cystic right ovary and bowel adhesions on both sides, but the pelvis was clear of the bladder and posterior cul-de-sac, so the bowel adhesions were actually left alone. COMPLICATIONS: None. DESCRIPTION OF PROCEDURE: This patient was taken to the operating room, where general anesthesia was placed. The patient was placed in dorsal lithotomy position in [facility]. The patient's abdomen and vagina were prepped and draped in the normal sterile fashion and a Sepulveda catheter had been inserted under sterile technique. Upon my arrival, a time-out was performed. Once everyone agreed, a bivalve speculum was placed in the patient's vagina. A single-tooth tenaculum was used to grasp the anterior lip of the cervix. A 10 mL of 0.25% Marcaine with epinephrine was used to circumferentially inject around the cervix for both hemodissection and hemostatic purposes later. The Valtchev uterine manipulator was placed through the endocervical os, locked on the single-tooth tenaculum and the bivalve speculum was then removed. Top gloves were discarded and changed. Attention was then turned to the abdomen, where a small supraumbilical skin incision was made with the scalpel. A curved Maria was used to dissect through the subcuticular layer to the fascia. The 5-mm Visiport was used to directly enter the abdominal cavity. Opening patient pressure was about 4 mmHg. Direct abdominal placement was confirmed via the laparoscope. Right and left lower quadrant ports were placed after transilluminating the abdomen, finding an area clear of any vasculature, making sure it was free on the inside and placing it under direct visualization and inflating the balloons with 2 mL of air. I did move the camera and look at the umbilical port as well. It was clear and I inflated down with 2 mL of air as well. At this point, the patient was placed in Trendelenburg and the left tube and ovary were elevated, distance was normal, finding the ureter coursing low, staying high on the IP ligament, cauterizing it, crossing over to the round and then this was done exactly the same on the right side, but the right had a large cyst, but elevating it, finding the ureter coursing low, staying high on the IP ligament under the ovary and crossing and taking it with the LigaSure, cauterizing and cutting and then getting to the round as well. Once this was done, the uterus was pushed in towards the head of the bed cephalad. The Maryland was used to elevate the bladder flap and the monopolar hook was used to cauterize like a hot knife and come across and make the bladder flap sharply. Once this was done, the LigaSure was used to cross the uterine vessels on both sides and then staying inside that pedicle and going through the cardinal and broad ligaments down to the uterosacral ligaments bilaterally, freeing up the uterus, it did ileana and there were no adhesions to the uterus. So, at this point, all instruments were removed from the abdomen and attention was turned vaginally. The single tooth and Valtchev were removed. A weighted speculum was placed in the patient's vagina. Thyroid Shayna clamps were placed on the anterior and posterior lips of the cervix respectively. A scalpel was used to make a circumferential incision in the cervix. An open Ray-Marija 4 x 4 was used to gently push up the anterior bladder peritoneum and the anterior cul-de-sac was digitally and bluntly entered. The Ray-Marija was removed and the curved Lindsay was placed in the anterior cul-de-sac. The cervix was elevated. The posterior cul-de-sac was sharply entered with the Brooks scissors. A #0 Vicryl stitch was used to secure the posterior peritoneum here to the vaginal cuff with a #0 Vicryl and tagged with a curved Maria clamp and the needle was cut and passed off. The short-weighted speculum was removed and replaced with the long-weighted vaginal speculum. Curved Carolyn clamps x 2 were placed on the patient's left uterosacral ligament, where they were doubly clamped with curved Heaneys, cut with Brooks scissors and suture ligated x 2 with 0 Vicryl. Second one was taken through the vaginal cuff, securing the uterosacral ligament to the vaginal cuff and tagging it with a straight Maria clamp and cutting and passing the needle off. This was done exactly the same on the right side, double clamping with curved Carolyn's, cutting with Brooks scissors, suture ligating x 2 with 0 Vicryl and taking the second one through the vaginal cuff and tagging it with a straight Maria clamp. Once this was done, the remaining pedicles on both sides were delineated with a right angle clamp and the vaginal LigaSure was used to cauterize the remaining pedicle. Cervix, uterus, bilateral tubes and ovaries were delivered in total and passed off for permanent pathology. A sponge stick was used to examine the pedicles; they were hemostatic. The long Allis was used to grasp the anterior bladder peritoneum and 2-0 Vicryl was taken through the anterior bladder peritoneum, left uterosacral ligament, posterior peritoneum and right uterosacral ligament, thus closing the peritoneum in a pursestring like fashion. The right and left uterosacral tags were clipped at this point. The vaginal cuff was closed in an zjwtyahm-io-yihjzqbib running locked fashion with a full-length 2-0 Vicryl and tied to that posterior cuff tag. Sponge stick was used to examine the vagina and it was completely hemostatic. At this point, all gloves were discarded and changed and the initial counts were correct. Attention was turned back above for a second look, where there was no blood in the cul-de-sac. No blood in the pericolic gutters. Copious irrigation revealed a tiny bit of blood coming from the left side, where the LigaSure was used to take care of this. Once it was done, Tisseel was placed over the pedicles with excellent results. Gas was released, it was watched. There was no active rundown or bleeding. So the right and left lower quadrant ports, 2 mL of air was deflated from the balloons. These were removed under direct visualization and were hemostatic. Gas was released from the umbilical port. All three port sites were closed with 4-0 nylon at the end and injected with local. The patient is currently being awakened from anesthesia. EUFEMIA GANDHI MD DR: HERRERA/camryn JOB#: [id number] / [id number]
[2018-02-04] MEDS: oxyCODONE/APAP 5/325 1 TAB TABLET PO PRN ×2 (15:19→20:30)
[2018-02-05] MEDS: oxyCODONE/APAP 5/325 1 TAB TABLET PO PRN ×3 (00:40→11:24)
[2018-02-05 00:45] VITALS: BP 138/58
[2018-02-05 05:00] VITALS: BP 134/74
[2018-02-05 05:36] LABS: CALCIUM 9.4 mg/dL (8.5-10.1); CREATININE 0.9 mg/dL (0.6-1.0); GFR 63.4; POTASSIUM 4.2 mmol/L (3.5-5.1)
--- NOTE | 2018-02-05 07:43 | PDOC ---
SURGICAL PROGRESS NOTE Subjective Doing well without complaints. Minimal pain, scant VB, tolerating fluids and oral pain pills well. wants to go home, ambulating well without assistance and voiding without catheter Vital Signs Vital Signs Date Time Temp Pulse Resp B/P (MAP) Pulse Ox O2 Delivery O2 Flow Rate FiO2 02/05/18 05:00 98.8 70 20 134/74 (94) 97 Room Air 98.8 02/04/18 12:00 2.0 I&O Intake and Output 02/05/18 07:00 Intake Total 3141 ml Output Total 2065 ml Balance 1076 ml Intake Oral 1150 ml IV Total 1991 ml Output Urine Total 2040 ml Estimated Blood Loss 25 ml # Voids 3 PATIENT HAS A TOMLINSON: No General: Alert, Oriented X3, Cooperative, No acute distress HEENT: Atraumatic Heart: Regular rate Abdomen: Soft, No tenderness, Other (all port sites c/d/i) Extremities: No clubbing, No cyanosis, No edema, No tenderness/swelling, Other (neg Homans bilaterally) Skin: No rashes, No breakdown, No significant lesion Neuro: Normal speech Psych/Mental Status: Mental status NL, Mood NL Labs Laboratory Tests Test 02/05/18 05:03 Hematocrit 36.9 % (36.0-47.0) Sodium Level 142 mmol/L (136-145) Potassium Level 4.2 mmol/L (3.5-5.1) Chloride Level 104 mmol/L (98-107) Carbon Dioxide Level 29 mmol/L (21-32) Anion Gap 9 (6-14) Blood Urea Nitrogen 8 mg/dL (7-20) Creatinine 0.9 mg/dL (0.6-1.0) Estimated GFR (Cockcroft-Gault) 63.4 Glucose Level 121 mg/dL (70-99) Calcium Level 9.4 mg/dL (8.5-10.1) Laboratory Tests Test 02/05/18 05:03 Hematocrit 36.9 % (36.0-47.0) Sodium Level 142 mmol/L (136-145) Potassium Level 4.2 mmol/L (3.5-5.1) Chloride Level 104 mmol/L (98-107) Carbon Dioxide Level 29 mmol/L (21-32) Anion Gap 9 (6-14) Blood Urea Nitrogen 8 mg/dL (7-20) Creatinine 0.9 mg/dL (0.6-1.0) Estimated GFR (Cockcroft-Gault) 63.4 Glucose Level 121 mg/dL (70-99) Calcium Level 9.4 mg/dL (8.5-10.1) I have reviewed the following labs, vitals, nursing Cardiovascular: No pertinent hx Pulmonary: No pertinent hx Heme/Onc: No pertinent hx Psych: Anxiety (lots of stress at home caring for her mother and her sister in law is coming over too after a knee surgery, would like to start paxil) Rheumatologic: No pertinent hx Infectious disease: No pertinent hx Assessment/Plan POD#1 s/p LAVH/BSO routine po care d/c to home NPV x 6 weeks already has narcotics filled at home ok to alternate ibuprofen as needed keep scheduled follow up with me in 7-10d light/limited activity x [address] while on narcotic pain meds Call or return sooner for any other questions or concerns not limited to but including pain unrelieved with malagon meds, increased or unexplained vaginal bleeding or T>100.4 EUFEMIA RAMACHANDRAN MD Feb 05, 2018 07:43
--- NOTE | 2018-02-05 07:49 | PDOC3 ---
Discharge Summary Visit Information Date of Admission: Feb 04, 2018 Date of Discharge: Feb 05, 2018 Final Diagnosis fibroids, ovarian cyst Brief Hospital Course Allergies Allergies Coded Allergies Type Severity Reaction Last Updated Verified No Known Drug Allergies 01/28/18 No Vital Signs Vital Signs Date Time Temp Pulse Resp B/P (MAP) Pulse Ox O2 Delivery O2 Flow Rate FiO2 02/05/18 05:00 98.8 70 20 134/74 (94) 97 Room Air 98.8 02/04/18 12:00 2.0 Lab Results Laboratory Tests Test 02/05/18 05:03 Hematocrit 36.9 % (36.0-47.0) Sodium Level 142 mmol/L (136-145) Potassium Level 4.2 mmol/L (3.5-5.1) Chloride Level 104 mmol/L (98-107) Carbon Dioxide Level 29 mmol/L (21-32) Anion Gap 9 (6-14) Blood Urea Nitrogen 8 mg/dL (7-20) Creatinine 0.9 mg/dL (0.6-1.0) Estimated GFR (Cockcroft-Gault) 63.4 Glucose Level 121 mg/dL (70-99) Calcium Level 9.4 mg/dL (8.5-10.1) Laboratory Tests Test 02/05/18 05:03 Hematocrit 36.9 % (36.0-47.0) Sodium Level 142 mmol/L (136-145) Potassium Level 4.2 mmol/L (3.5-5.1) Chloride Level 104 mmol/L (98-107) Carbon Dioxide Level 29 mmol/L (21-32) Anion Gap 9 (6-14) Blood Urea Nitrogen 8 mg/dL (7-20) Creatinine 0.9 mg/dL (0.6-1.0) Estimated GFR (Cockcroft-Gault) 63.4 Glucose Level 121 mg/dL (70-99) Calcium Level 9.4 mg/dL (8.5-10.1) Brief Hospital Course Ms. Daniels is a 62 old female who presented with enlarged fibroid uterus, right ovarian cyst. She underwent LAVH/BSO yesterday without complicaitons. She has had an unremarkable postoperative course. She is voiding without catheter, ambulating well, minimal pain and tolerating PO wanting to go home. Discharge Information Condition at Discharge: Improved Follow Up: Weeks Disposition/Orders: D/C to Home Scheduled Atorvastatin Calcium (Atorvastatin Calcium) 20 Mg Tablet, 20 MG PO DAILY for FOR CHOLESTEROL, #30 Ref 0 (Reported) Entered as Reported by: OLY PATEL RN on 07/21/15 1443 Last Taken: Unknown Dose on 02/03/18 Last Action: Continued on 02/04/18725 by EUFEMIA RAMACHANDRAN Xbqrmolq-Gflmapt-Kyac 149-Hyal (Glucosamine-Chondr Complex Tab) 1 Each Tablet, 3 EACH PO DAILY08 for arthritis, (Reported) Entered as Reported by: KINSEY WAGNER on 01/28/18 1534 Last Taken: Unknown Dose on 02/02/18 Last Action: HELD on 02/04/18725 by EUFEMIA RAMACHANDRAN Losartan Potassium (Losartan Potassium) 25 Mg Tablet, 25 MG PO DAILY, (Reported) Entered as Reported by: SIGRID VILLASENOR on 11/15/17 1120 Last Taken: Unknown Dose on 02/04/18 0500 Last Action: Continued on 02/04 by EUFEMIA RAMACHANDRAN Meloxicam (Meloxicam) 15 Mg Tablet, 15 MG PO DAILY, (Reported) Entered as Reported by: OLY PATEL RN on 07/21/15 1443 Last Taken: Unknown Dose on 02/03/18 Last Action: HELD on 02/04/18725 by EUFEMIA RAMACHANDRAN Mayaguez-3 Fatty Acids/Fish Oil (Fish Oil 1,000 Mg Softgel) 1 Each Capsule, 2 EACH PO DAILY08 for other, (Reported) Entered as Reported by: KINSEY WAGNER on 01/28/18 1534 Last Taken: Unknown Dose on 01/28/18 Last Action: HELD on 02/04/18725 by EUFEMIA RAMACHANDRAN Zolpidem Tartrate (Zolpidem Tartrate) 10 Mg Tablet, 1 TAB PO QHS, #30 Ref 2 ( Reported) Entered as Reported by: JOSE F SANABRIA on 11/20/17 1145 Last Taken: Unknown Dose on 02/03/18 Last Action: Converted on 02/04/18725 by EUFEMIA RAMACHANDRAN Patient Instructions Patient Instructions POD#1 s/p LAVH/BSO routine po care d/c to home NPV x 6 weeks already has narcotics filled at home ok to alternate ibuprofen as needed keep scheduled follow up with me in 7-10d light/limited activity x [address] while on narcotic pain meds Call or return sooner for any other questions or concerns not limited to but including pain unrelieved with malagon meds, increased or unexplained vaginal bleeding or T>100.4 EUFEMIA RAMACHANDRAN MD Feb 05, 2018 07:49
[2018-02-05] MEDS: LOSARTAN POTASSIUM 25 MG TABLET. PO SCH (09:00)
[2018-02-05 11:30] VITALS: BP 132/69
--- NOTE | 2018-02-09 09:07 | PATHOLOGY ---
[facility] Accession Number: [id number] . 01 Material submitted: . CERVIX, UTERUS, BILATERAL OVARIES AND TUBES . 01 Clinical history: . Fibroids . 02 Diagnosis: Uterus and attached bilateral fallopian tubes and ovaries, total hysterectomy with bilateral salpingo-oophorectomy: - Leiomyomas, uterine corpus, submucosal/intramural/subserosal, multiple, the largest measuring 3.1 cm in greatest dimension, producing enlargement and nodular distortion of uterine corpus (uterine weight 148 grams). - Focal mild chronic cervicitis with squamous metaplasia. - Atrophic endometrium. - Adenomyosis, uterine corpus, focal. - Status post bilateral tubal ligation. - Congestion and cystic Walthard's rests of bilateral fallopian tubes. - Serous cystoma of right ovary. - Left ovary showing no significant pathologic abnormalities. . (JPM:vjm;02/06/2018) 02/09/2018 . 02 Comment: No atypia or evidence of malignancy. . (JPM:vjm;02/06/2018) . 02 Electronically signed: . Howard Douglass MD, Pathologist NPI- [id number] . 01 Gross description: . The specimen is received in formalin, labeled "Wood, Makayla, uterus, bilateral ovaries and tubes" and consists of a 148 g multinodular and distorted uterus with attached cervix measuring 8.8 x 5.9 x 6.3 cm. There is attached bilateral tubo-ovarian complexes consisting of right fallopian tube (4.5 cm in length and ranging from 0.3-0.5 cm in diameter) attached to a cystic (18 g, 3.8 x 3.5 x 2.5 cm) ovary. The left fallopian tube measures 4.8 cm in length and ranging from 0.3-0.5 cm in diameter which is attached to a (4 g, 3.8 x 1.4 x 0.8 cm) ovary. Both fallopian tubes are post status tubal ligation. The uterine serosa is mehta to brown, smooth with multifocal hemorrhage. The near circular 0.5 cm cervical os is surrounded by pink-mehta and glistening ectocervical mucosa. The specimen is bivalved to reveal a 2.6 cm grooved endocervical canal. The endometrial cavity is distorted measuring 5.0 cm in length and 0.9 cm in width which is lined by a scarred endometrium measuring less than 0.1 cm. Further sectioning reveals multiple subserosal, intramural, and submucosal nodules ranging from 0.3 cm to 3.1 cm. The myometrium measures up to 3.8 cm, is pink-mehta with evidence of adenomyosis. The nodules have cut surfaces that are pink-white, whorled, homogeneous without hemorrhage, necrosis, or calcifications. . Both segments of fallopian tube are white-purple and smooth with paratubal cysts ranging from 0.1-0.7 cm. Sectioning each reveals a central lumen and no gross lesions. Sectioning the right ovary reveals the ovary has been almost entirely replaced by a unilocular cyst containing translucent yellow-mehta fluid measuring 3.7 x 3.4 cm. The cyst lining is smooth without papillary excrescences and a wall ranging from 0.1-0.2 cm. The left ovary is mehta and cerebriform. Sectioning reveals multiple corpora albicantia and no mass lesions. Pacu Rn sections are submitted as follows: . A1: Anterior cervix A2: Posterior cervix A3: Anterior endomyometrium A4: Posterior endomyometrium A5-A6: Nodules A7: Right fallopian tube A8: Right ovary A9: Left fallopian tube A10: Left ovary (SDY; 02/05/2018) SYU/SYU . 02 Pathologist provided ICD-10: D25.1, D25.2, N85.8, N80.0, N72 . 02 CPT . 369425 Specimen Comment: A courtesy copy of this report has been sent to Specimen Comment: [phone], . Specimen Comment: Report sent to / DR VILLASENOR Specimen Comment: A duplicate report has been generated due to demographic updates. Performed at: 01 [facility] [address] [facility] [address], [place] [id number] MD Scot Moscoso MD Phone: [phone] Performed at: 02 [facility] [address] [place], [place] [id number] MD Howard Douglass MD Phone: [phone]
== END 2018-02-05 11:41 | disposition home or self-care (01) ==
LOC: SURG 05:46 → 3 NORTH 09:50
PROVIDERS: ADMIT Obstetrics & Gynecology; ATTEND Obstetrics & Gynecology
DX: D25.9 Leiomyoma of uterus, unspecified (principal); N83.201 Unspecified ovarian cyst, right side; K66.0 Peritoneal adhesions (postprocedural) (postinfection); R93.89 Abnormal findings on diagnostic imaging of other specified body structures; Z98.51 Tubal ligation status
CPT/HCPCS: 36415; 58552; 80048; 85014; 86850; 86900; 86901; 88307; 96374; A7015; G0378; G0379; J0690; J1100; J1885; J2250; J2270; J2405; J2704; J2710; J3010; J3490; J7030; J7120

== ENCOUNTER → 2019-01-18 | Outpatient (CLI) | payer BC ==
[~2019-01-18] MED LIST changes: -LOSA25TA5 PO; +LOSA25TA54 PO
--- NOTE | 2019-01-18 16:57 | KCIC ---
Bilateral digital screening mammograms: Reason for examination: Routine screening. Comparison is made to previous studies dated 10/01/2017 and 09/12/2016. Interpretation was made with the benefit of CAD. The skin and nipples show no abnormalities. No abnormal lymph nodes are seen. The breast parenchyma is predominantly fatty. (Breast density: Category A.) There are no dominant masses, suspicious calcifications or architectural distortions. Punctate benign calcifications are again seen. Impression: No evidence of malignancy. Recommend routine screening. BI-RADS Category 2: Benign. "Our facility is accredited by the [employer] Mammography Program." This patient's information has been entered into a reminder system for the patient to be notified with the results of her examination and a target date for the next mammogram. Electronically signed by: Huong Lawson MD (01/18/2019 4:54 PM) [id number]
== END | disposition home or self-care (01) ==
LOC: KCIC MAMMO 16:25
PROVIDERS: ATTEND Family Medicine
DX: Z12.31 Encounter for screening mammogram for malignant neoplasm of breast (principal); N64.89 Other specified disorders of breast
CPT/HCPCS: 77067

== ENCOUNTER → 2020-11-10 | Outpatient (CLI) | payer MEDICARE ==
[~2020-11-10] MED LIST changes: +IOHEXOL 300 MG/ML 100ML VIAL. IV ONE; -LISI-338 PO; +LISI-517 PO; +LISI10TA16 PO; -LISI10TA2 PO
--- NOTE | 2020-11-10 15:16 | KCIC ---
PQRS Compliance Statement: One or more of the following individualized dose reduction techniques were utilized for this examinat ion: 1. Automated exposure control 2. Adjustment of the mA and/or kV according to patient size 3. Use of iterative reconstruction technique Exam performed: CT urogram without HISTORY: Gross material. DATE OF SERVICE: 11/10/2020. COMPARISON: None available TECHNIQUE: Contiguous helical acquisitions are obtained through the abdomen and pelvis without IV con trast. Patient was then injected with 100 cc of Omnipaque 300. Images were obtained of the abdomen du ring nephrogram phase. Delayed images of the abdomen and pelvis were also obtained. FINDINGS: The noncontrast enhanced images demonstrate no evidence of urolithiasis, hydronephrosis or other abno rmal calcifications. There is symmetric perfusion of bilateral kidneys. Bilateral collecting system a ppears symmetric without dilatation. Both ureters are seen normally throughout its course. The urinar y bladder is grossly unremarkable. There is a probable cyst in the left hepatic lobe segment 2. Mild hepatic steatosis is noted. The spl een, pancreas and gallbladder are normal. Both adrenal glands are symmetric. Small and large bowel lo ops are nondilated and unremarkable. The appendix is not clearly seen. Scattered stool in the colon. No free fluid. Hysterectomy. There are degenerative disc disease at L5-S1. IMPRESSION: Essentially unremarkable CT urogram. No evidence of nephrolithiasis, hydronephrosis or other abnormal ity seen. Electronically signed by: Lashell Damon MD (11/10/2020 3:13 PM) [id number]
--- NOTE | 2020-11-11 08:15 | KCIC ---
DXA BONE DENSITY AXIAL History: Reason: Post menopausal. / Spl. Instructions: / History: Comparison: None. TECHNIQUE: Dual energy x-ray absorptiometry of the lumbar spine and left hip was performed. T-score o f average bone mineral density based was calculated based on standard deviations above or below the e xpected young adult normal value. Diagnostic definitions were established by the [employer] ation. FINDINGS: The average bone mineral density associated with L1-L4 is 1.214 g/cm^2, corresponding with a T-score of 1.5. The average total bone mineral density associated with left hip is 1.026 g/cm^2, corresponding with a T-score of 0.7. Refer to the worksheets for full detail. IMPRESSION: 1. Normal. Average bone mineral density yields a T-score of -1.0 or greater. Fracture risk is low. Electronically signed by: Jono Escobar DO (11/11/2020 8:13 AM) [id number]
== END ==
LOC: KCIC DEXA 08:15
PROVIDERS: ATTEND Family Medicine
DX: R31.0 Gross hematuria (principal); K76.0 Fatty (change of) liver, not elsewhere classified; M51.37 Other intervertebral disc degeneration, lumbosacral region; Z78.0 Asymptomatic menopausal state; Z90.710 Acquired absence of both cervix and uterus
CPT/HCPCS: 74178; 77080; 82565; Q9967

== ENCOUNTER → 2021-03-05 | Outpatient (CLI) | payer MEDICARE ==
[~2021-03-05] MED LIST changes: -IOHEXOL 300 MG/ML 100ML VIAL. IV ONE; -LISI-517 PO; +LISI5TAB15 PO; +REGADENOSON 0.4 MG/5 ML DISP.SYRIN. IV ONE
--- NOTE | 2021-03-05 16:32 | RAD ---
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 Diminished heart tones. No chest pain, no SOA. Pharm. Details Pharmacologic stress testing was performed using 0.4mg per 5ml of regadenoson given intravenously ove r 7-10 seconds. Stress Symptoms Flushing. Resolved by end of test. No chest pain or SOA during test. POST EXERCISE Reason for Termination: Infusion complete Max HR: 159 bpm Max Blood Pressure: 160/71mmHg Blood Pressure response to exercise: Normal blood pressure response during stress. Heart Rate response to exercise: Normal response Chest Pain: No. Arrhythmia: No. ST Change: No. INTERPRETATION Stress EKG Conclusion: Baseline EKG showed atrial paced rhythm. Nondiagnostic changes at peak stress . No arrhythmias. Imaging Protocol IMAGE PROTOCOL: Rest Tc-99m/stress Tc-99m 1 day Rest: Stress: Viability: Radiopharm.Tc99m QmlhlicxtWu43c Sestamibi [id number] 30mCi Img Date 03/05/2021 03/05/2021 Inj-Img [id number]. 60min. Rest Admin Site:IV - Right AntecubitalAdministrator:AB Rivera Stress Admin Site: IV - Right AntecubitalAdministrator: AB Rivera STRESS DATA End Diast. Vol.45.0mlLVEDV index BSA23.0ml End Syst. Vol.8.0mlLVESV index BSA4.0ml Myocardial Mass89.0gEject. Zcoodzgk31.0% Stress Scores Regional WT0.00Summed WT5.00 Regional WM0.00Summed WM0.00 Study quality was good. Left Ventricular size was Normal at Rest and Stress. Lung uptake was . Left Ventricular ejection fraction is 68%. The rest and stress images show normal perfusion, normal contraction and thickening. LV Perf. Quant 17 Seg. SSS0.00 17 Seg. SRS0.00 17 Seg. SDS0.00 Stress Defect Extent (% LAD)0.00Rest Defect Extent (% LAD)0.00Rev. Defect Extent (% LAD)0.00 Stress Defect Extent (% LCX) 0.00Rest Defect Extent (% LCX)0.00Rev. Defect Extent (% LCX)0.00 Stress Defect Extent (% RCA)0.00Rest Defect Extent (% RCA)0.00Rev. Defect Extent (% RCA)0.00 Stress Defect Extent (% ALISE)0.00Rest Defect Extent (% ALISE)0.00Rev. Defect Extent (% ALISE)0.00 Conclusion 1. Regadenoson cardioisotope stress test did not show any evidence of ischemia or infarct. 2. Normal left ventricular systolic function with ejection fraction calculated at 68%. 3. Low risk for cardiac events. Signed by : Jae Herrera, Electronically Approved : 03/05/2021 16:31:45
== END ==
LOC: NM 09:57
PROVIDERS: ATTEND Internal Medicine Cardiovascular Disease
DX: R06.02 Shortness of breath (principal); R06.09 Other forms of dyspnea
CPT/HCPCS: 78452; 93017; A9500; J2785

== ENCOUNTER → 2021-08-03 | Outpatient (CLI) | payer MEDICARE ==
[~2021-08-03] MED LIST changes: -REGADENOSON 0.4 MG/5 ML DISP.SYRIN. IV ONE
--- NOTE | 2021-08-03 10:53 | KCIC ---
Bilateral digital screening 2-D and 3-D (digital breast tomosynthesis) mammogram: Reason for examination: Routine screening. Comparison: Mammograms from 01/18/2019 and 10/01/2017. Interpretation was made with the benefit of CAD. FINDINGS: Breast density: Category A. Breast tissue is almost entirely fatty. No suspicious breast mass, malignant appearing calcifications, or architectural distortion is seen. IMPRESSION: No evidence of malignancy. Assessment: BI-RADS 1. Negative. Recommendation: Routine screening mammograms. The patient will receive a letter with the results in the mail. Patient information will be entered i nto the mammography reminder system with a target recall date for the next mammogram. A reminder henrietta er will be generated. Electronically signed by: Mimi Najera MD (08/03/2021 10:50 AM) [id number]
== END ==
LOC: KCIC MAMMO 09:47
PROVIDERS: ATTEND Family Medicine
DX: Z12.31 Encounter for screening mammogram for malignant neoplasm of breast (principal)
CPT/HCPCS: 77063; 77067